=== PATIENT | female | born 1990 | race African-American/Black ===

== ENCOUNTER 2020-08-04 09:36 | Emergency (ER) | payer OTHER ==
[2020-08-04 09:47] VITALS: BP 105/72; PULSE 100; TEMP 97.9; BMI 20.7
[2020-08-04] MEDS ORDERED: IBUPROFEN 600 MG TABLET (FP) PO ONE ×2 (10:09→10:11)
== END 2020-08-04 11:11 | disposition home or self-care (01) ==
LOC: JERFT 09:36
DX: M54.6 Pain in thoracic spine (principal)
CPT/HCPCS: 72070-TC-FY; 72100-TC-FY; 99284-25